=== PATIENT | male | born 1970 | race Caucasian/White ===

== ENCOUNTER 2017-08-16 05:45 | Day surgery (SDC) | payer OTHER ==
[~2017-08-16] VITALS: Ht 188 cm; Wt 96.6 kg
[~2017-08-16 05:45] MED LIST: FLEXERIL10 MG PO; OXYCODON-ACETA1 EAC2 PO
--- NOTE | 2017-08-16 08:49 | NUR ---
08/16/17 0849 Eden Williamson 0845 TO PACU, RESP EVEN UNLABORED. 0849 DENIES PAIN OR NAUSEA. ICE PLACED TO OPSITE. HOB ELEVATED
--- NOTE | 2017-08-16 09:30 | NUR ---
PT CALLED, IN TO ROOM. PT ASSISTED TO BATHROOM. PT C/O SLIGHT DIZZINESS WHEN STANDING, BUT SYMPTOMS PASSED QUICKLY. AMBULATED WELL WITH STANBY ASSIST. VOID 500 MLS OF URINE. ASSISTED BACK TO BED. IV SL. PT STATES HE IS DOING WELL. NO FURTHER NEEDS, CALL LIGHT IN REACH.
--- NOTE | 2017-08-16 10:16 | NUR ---
REQ PAIN MEDICINE FOR PAIN STARTING AND TRIP HOME.
--- NOTE | 2017-08-16 10:46 | NUR ---
1012 ATE PUDDING PRIOR TO RX. HAS DRANK 300MLS WATER. AMB GARDED BUT WELL. FAMILY HERE. REQ TO GO HOME.
--- NOTE | 2017-08-16 11:39 | OR ---
[facility] [address], [place] [address] Signed DATE OF OPERATION: 08/16/2017 SURGEON: Melida Reynoso MD PREOPERATIVE DIAGNOSIS: Reducible right inguinal hernia. POSTOPERATIVE DIAGNOSIS: Reducible right direct inguinal hernia. PROCEDURE: Right Forrest onlay mesh inguinal herniorrhaphy. ESTIMATED BLOOD LOSS: None. 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 He noticed symptomatic painful lump in his right groin. He said the pain is probably a 7/10 when he is active or doing anything, but it is 3/10 when he sitting. He says it is reducible and he has had it for about a year and a half. In the office, I gave him a booklet on hernias and we looked at that carefully. We discussed the difference between a primary suture repair, mesh repair, and a laparoscopic repair. He has had a previous laparoscopic repair and that went well. We offered to send him to someone who could do that laparoscopically and he declined. He wanted to stay here in [place], had me do a traditional onlay approach. We had reviewed that in detail. He understands there is risk of surgery including, but not limited to bleeding, infection, scarring, change in contour of the skin, damage to the nerves, ischemic orchitis, recurrent hernias and chronic pain. He does understand the expected intraop and postop course. He had expressed understanding and wished to proceed. PROCEDURE NOTE: I met with Bridger and his family in our preop area. We all agreed it was the right groin and we marked that appropriately. After this, Husam was taken into our operating room and placed in the supine position under general LMA anesthesia. He was given preoperative antibiotics along with subcutaneous heparin. SCDs were utilized. He was then prepped and draped in the usual sterile fashion. A standard oblique incision was made in the right groin and carried down through the tissue bluntly and with the cautery. The external oblique fascia was opened medially laterally along its length. The Electronically Signed By: MELIDA REYNOSO MD 08/16/17 1139 PATIENT NAME: BRIDGER VICTOR IV OPERATIVE REPORT DATE OF : 68 REPORT #: [id number] PHYSICIAN: MELIDA REYNOSO MD PCP: BIBI BLOOM MD REPORT IS CONFIDENTIAL AND NOT TO BE RELEASED WITHOUT AUTHORIZATION [facility] [address], [place] [address] Signed ilioinguinal and iliohypogastric nerves were visualized and protected throughout the case. The cord structures were elevated at the level of pubic tubercle with the help of a Anita drain. We found that he did have a moderate sized, but reducible direct inguinal hernia containing fat. We carefully examined the anteromedial side of the cord structures at the level of deep ring. There was no indirect component found. We then imbricated the floor of inguinal canal with 2-0 PDS suture to keep the hernia down and out of the way. After this, a piece of flat Prolene mesh was cut to fit his groin and a slit was made in the mesh to accommodate the cord structures at the level of deep ring. The mesh was held in place medially and laterally with help of running #1 Prolene suture. This gave good coverage of direct and indirect spaces. There was no undue tension of the mesh around the cord structures at the level of deep ring. After this, local anesthetic was copiously injected into the wound. The wound was irrigated and suctioned out until clear. The external oblique fascia was closed over the repair with the help of a running 2-0 PDS suture. The Gaby's fascia was reapproximated with a running 3-0 Monocryl suture. The dermis was reapproximated with interrupted 3-0 subcuticular Monocryl sutures. The skin edges were then reapproximated with a running 6-0 fast absorbing plain gut suture. Dry gauze and tape were then applied. Bridger was then awakened from his anesthesia, extubated in the OR, and taken to recovery room in stable condition. Melida Reynoso MD ALB/MODL /[id number] cc: MD Bibi Dubose MD Copies: MELIDA REYNOSO MD, RUSSELL BARR MD ~ Electronically Signed By: MELIDA REYNOSO MD 08/16/17 1139 PATIENT NAME: BRIDGER VICTOR IV OPERATIVE REPORT DATE OF : 68 REPORT #: [id number] PHYSICIAN: MELIDA REYNOSO MD PCP: BIBI BLOOM MD REPORT IS CONFIDENTIAL AND NOT TO BE RELEASED WITHOUT AUTHORIZATION
== END 2017-08-16 10:40 | disposition home or self-care (01) ==
LOC: DS 05:45
PROVIDERS: Colon & Rectal Surgery
PROC: 0YU50JZ Supplement Right Inguinal Region with Synthetic Substitute, Open Approach (ICD-10-PCS; principal; 2017-08-16 06:45)
DX: K40.90 Unilateral inguinal hernia, without obstruction or gangrene, not specified as recurrent (principal); G47.33 Obstructive sleep apnea (adult) (pediatric); G89.29 Other chronic pain; M54.9 Dorsalgia, unspecified; K21.9 Gastro-esophageal reflux disease without esophagitis; Z98.890 Other specified postprocedural states; Z88.8 Allergy status to other drugs, medicaments and biological substances; Z87.891 Personal history of nicotine dependence
CPT/HCPCS: C1781; J0330; J0690; J1100; J1644; J1885; J2250; J2405; J2704; J2765; J3010; J7120